=== PATIENT | female | born 1980 | race African-American/Black ===

== ENCOUNTER 2016-11-14 12:46 | Inpatient (IN) ==
[2016-11-14] MEDS ORDERED: *HR* LORazepam 2 MG/ML VIAL IVP ONE (12:48)
--- NOTE | 2016-11-14 12:54 | Emergency Department Note ---
Disposition Clinical Impression: Epileptic seizure Qualifiers: Epilepsy type: unspecified Intractability: not intractable Status epilepticus: without status epilepticus Qualified Code(s): G40.909 - Epilepsy, unspecified, not intractable, without status epilepticus Disposition: Admitted As Inpatient Condition: Fair Referrals: NO,PCP [Primary Care Provider] - Forms: ED Satisfaction Letter Time of Disposition: 15:46 Seizure HPI - General Chief Complaint: ED Seizure Stated Complaint: Seizure like activity Time Seen by Provider: 11/14/16 12:47 Source: patient, EMS, police Mode of arrival: EMS Limitations: no limitations Nursing Notes Reviewed: Yes Vital Signs Reviewed: Yes - History of Present Illness HPI Narrative: 36-year-old [facility] with [facility] withdrawal. Patient had 2 witnessed seizures at the [facility] had 1 by squad. Patient has been on Xanax for an extended period of time. She is been in [facility] for 3 days. 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 Description of Episode: tonic-clonic movement -: minutes(s) Witnessed: yes - by bystander, yes - by EMS Associated trauma secondary to event: No Seizure History: none Place: other ([facility]) Possible Precipitating Event: medication-change or access to Treatments prior to arrival: none - Related Data Previous Rx's Medication Instructions Recorded Sulfamethoxazole/Trimeth DS 1 each PO BID #6 tablet 11/11/16 [Bactrim DS] Allergies Allergy/AdvReac Type Severity Reaction Status Date / Time tramadol [From Ultram] Allergy Headache Verified 04/19/16 12:16 morphine AdvReac Hives Verified 04/19/16 12:16 All systems ED: reviewed and negative except as stated. Constitutional: Denies: fever, chills, weakness, weight change Eyes: Denies: eye pain, eye discharge, vision change ENT ED: Denies: ear pain, throat pain, dental pain, hearing loss, epistaxis, congestion, dysphagia Cardiovascular: Denies: chest pain, palpitations, dyspnea on exertion, edema, syncope Respiratory: Denies: cough, dyspnea, wheezes, hemoptysis, stridor Gastrointestinal: Denies: abdominal pain, nausea, vomiting, diarrhea, constipation, hematemesis, melena, hematochezia Genitourinary: Denies: dysuria, frequency, hematuria, discharge Musculoskeletal: Denies: back pain, neck pain, arthralgia, myalgia Integumentary: Denies: rash, abrasion, lesions Neurological: Reports: other (Seizure). Denies: headache, weakness, numbness, paresthesias, confusion, abnormal gait, vertigo Psychiatric: Denies: anxiety, depression, suicidal thoughts, homicidal thoughts , auditory hallucinations, visual hallucinations Endocrine: Denies: fatigue Hematological/Lymphatic: Denies: easy bleeding, easy bruising Allergic/Immunologic: Denies: facial swelling, urticaria Past Medical History - Past Medical History Medical history: Reports: asthma, diabetes, hepatitis, seizures Surgical history: Reports: cholecystectomy, hysterectomy Psychiatric history: Reports: other - Social History Smoking Status: Current every day smoker Smokeless Tobacco Status: No Alcohol use: Reports: occasionally Drug use: Reports: cocaine, opiates, IVDU Physical Exam - General Limitations: no limitations General appearance: alert, in no apparent distress - Head Head exam: atraumatic, normocephalic, normal inspection - Eye Eye exam: Present: normal appearance, PERRL, EOMI - ENT ENT exam: normal exam, normal oropharynx, mucous membranes moist - Neck Neck exam: Present: normal inspection, full ROM, trachea midline - Chest Chest inspection: Present: normal inspection, symmetric chest wall rise - Respiratory Respiratory exam: Present: normal lung sounds bilaterally - Cardiovascular Cardiovascular exam: Present: regular rate, normal rhythm, normal heart sounds - Abdominal Exam Abdominal exam: Present: soft, Non-Tender. Absent: tenderness, distention, guarding, rebound, rigidity - Extremities Exam Extremities exam: Present: normal inspection, full ROM. Absent: tenderness, pedal edema - Expanded Lower Extremity Exam Neurovascular/Tendon exam: Absent: motor deficit, sensory deficit, tendon deficit Gait: observed and normal - Back Exam Back exam: Present: normal inspection, full ROM. Absent: tenderness - Neurological Exam Neurological exam: Present: alert, oriented X3 - Psychiatric Psychiatric exam: Present: normal affect, normal mood - Skin Skin exam: Present: warm, dry, intact, normal color Course - Reevaluation(s) Reevaluation #1: 36-year-old with seizures at the [facility] patient is on benzos chronically and has had them for 3 days appears that she's suffered from benzo withdrawal seizures. Time: 15:45 - Consultations Consultation #1: Discussed with Claire walters. Time: 15:44 Vital Signs Temperature 99.1 F 06/18/17 12:47 Pulse Rate 56 11/14/16 12:47 Respiratory Rate 18 11/14/16 12:47 Blood Pressure 132/96 11/14/16 12:47 O2 Sat by Pulse Oximetry 100 11/14/16 12:47 Temperature 99.1 F 11/14/16 12:47 Pulse Rate 64 11/14/16 15:20 Respiratory Rate 18 11/14/16 15:20 Blood Pressure 127/80 11/14/16 15:20 O2 Sat by Pulse Oximetry 97 11/14/16 13:50 Oxygen Delivery Oxygen Delivery Room Air Seizure - Lab Data Result diagrams: 11/14/16 14:27 11/14/16 14:27 Lab Results 11/14/16 11/14/16 11/14/16 Range/Units 14:27 14:27 14:27 WBC 16.1 H D (4.3-11.1) K/mcL RBC 5.04 H (3.82-4.97) M/mcL Hgb 15.1 D (11.5-15.4) g/dL Hct 44.9 (35.3-44.9) % MCV 89.1 (83.0-100.0) fL MCH 30.0 (28.0-33.3) pg MCHC 33.6 (31.6-35.5) g/dL RDW 12.1 (11.5-14.5) % Plt Count 340 (140-400) K/mcL MPV 9.1 L (9.4-12.4) fL Immature Gran % 0.6 (0-4) % Seg Neutrophils % 78.6 % Lymphocytes % 14.8 % Monocytes % 5.8 % Eosinophils % 0.0 % Basophils % 0.2 % Neutrophils # 12.7 H (1.6-8.9) K/mcL Lymphocytes # 2.4 (0.6-4.6) K/mcL Monocytes # 0.9 (0.0-1.3) K/mcL Eosinophils # 0.0 (0.0-0.6) K/mcL Basophils # 0.0 (0.0-0.2) K/mcL Sodium 140 (136-145) mEq/L Potassium 3.8 (3.5-4.5) mEq/L Chloride 102 (98-109) mEq/L Carbon Dioxide 24 (19-29) mEq/L BUN 24 H D (7-20) mg/dL Creatinine 0.86 (0.57-1.11) mg/dL Est GFR ( Amer) > 60 (> 60) Est GFR (Non-Af Amer) > 60 (> 60) BUN/Creatinine Ratio 28 H (6-26) Glucose 216 H (70-99) mg/dL Calculated Osmolality 301 H (280-300) Calcium 9.9 (8.6-10.8) mg/dL Phosphorus 3.6 (2.3-4.7) mg/dL Magnesium 2.4 (1.6-2.6) mg/dL Serum , Qual Negative (Negative)
[2016-11-14] MEDS ORDERED: *HR* LORazepam 2 MG/ML VIAL IM ONE (13:20)
[2016-11-14] MEDS ORDERED: Haloperidol Lactate 5 MG/ML VIAL IM ONE (13:27)
[2016-11-14 14:33] LABS: Hematocrit 44.9 % (35.3-44.9); Immature Granulocytes % 0.6 % (0-4); Lymphocytes % 14.8 %; Mean Corpuscular HGB Conc 33.6 g/dL (31.6-35.5); Mean Corpuscular Volume 89.1 fL (83.0-100.0); Mean Platelet Volume 9.1 fL (9.4-12.4); Monocytes % 5.8 %; Platelet Count 340 K/mcL (140-400); Red Blood Count 5.04 M/mcL (3.82-4.97); Red Cell Distribution Width 12.1 % (11.5-14.5); Segmented Neutrophils % 78.6 %
[2016-11-14 14:34] LABS: Basophils % 0.2 %; Lymphocytes # 2.4 K/mcL (0.6-4.6); Monocytes # 0.9 K/mcL (0.0-1.3); Neutrophils # 12.7 K/mcL (1.6-8.9)
[2016-11-14 14:35] LABS: Hemoglobin 15.1 g/dL (11.5-15.4)
[2016-11-14 14:48] LABS: BUN/Creatinine Ratio 28 (6-26); Calcium 9.9 mg/dL (8.6-10.8); Carbon Dioxide 24 mEq/L (19-29); Chloride 102 mEq/L (98-109); Glucose 216 mg/dL (70-99); Magnesium 2.4 mg/dL (1.6-2.6); Osmolality,Calculated 301 (280-300); Phosphorous 3.6 mg/dL (2.3-4.7); Potassium 3.8 mEq/L (3.5-4.5); Sodium 140 mEq/L (136-145); eGFR For African Americans > 60 (> 60); eGFR For Non-African Americans > 60 (> 60)
[2016-11-14 14:52] LABS: Blood Urea Nitrogen 24 mg/dL (7-20)
[2016-11-14] MEDS ORDERED: *HR* LORazepam 2 MG/ML VIAL IVP PRN (18:01)
[2016-11-14] MEDS ORDERED: *HR* Dextrose 50 % in Water (Syg) 50 ML SYRINGE IVP PRN (18:02)
[2016-11-14] MEDS ORDERED: D5% in Water 1,000 ML IVC PRN (18:02)
[2016-11-14] MEDS ORDERED: Dextrose Gel 15 GM PO PRN ×2 (18:02)
[2016-11-14] MEDS ORDERED: Naloxone 0.4 MG/ML INJ IVP PRN (18:13)
[2016-11-14 18:24] LABS: Hemoglobin A1C 6.3 %
--- NOTE | 2016-11-14 18:51 | Internal Med History&Physical ---
Date of Encounter: 11/14/16 Time of Encounter: 18:46 Assessment and Plan (1) Epileptic seizure Current visit: Yes Status: Acute Patient with witnessed seizure today, and post -ictal hallucinations. She was given ativan and haldol. On reviewing records, patient has had multiple seizures in the past, but she also abuses benzos and hasn't had any in a few days. Seizure precautions Keppra 500mg IVPB, transition to PO once alert. Ativan PRN for seizure activity. Qualifiers: Epilepsy type: unspecified Intractability: not intractable Status epilepticus: without status epilepticus Qualified Code(s): G40.909 - Epilepsy , unspecified, not intractable, without status epilepticus (2) Diabetes Current visit: Yes Status: Chronic check A1c check blood sugars Q6hr sliding scale correction dose hypoglycemic protocol. Qualifiers: Diabetes mellitus type: type 2 Diabetes mellitus complication status: with unspecified complications Diabetes mellitus halfway insulin use: with terminal operations manager use Qualified Code(s): E11.8 - Type 2 diabetes mellitus with unspecified complications; Z79.4 - [facility] (current) use of insulin (3) Poly-drug misuser Current visit: No Status: Acute Patient uses heroin, benzos. Patient had seizure today likely related to benzo withdrawal, though it appears she has a history of seizure disorder. [facility] consulted. (4) Hallucinations Current visit: Yes Status: Acute Per ER report, patient had post-ictal hallucinations and became very agitated. She was given Haldol and settled down. (5) DVT prophylaxis Current visit: No Status: Acute anti-embolic stockings lovenox 40mg SQ daily Internal Medicine - H&P: HPI Chief complaint: seizure Admitted From: Emergency Dept Plans for Post Hospital Care: Transfer Other History of present illness: Ms. Amin is a 36 year old female who a history of diabetes, schizophrenia, bipolar disorder, hepatitis C, and seizure disorder who was sent to the emergency room from intermediate for witnessed seizure activity. Patient reportedly has seizure disorder, does not take medications. In addition to that patient uses benzos recreationally, and has not had any 3 days, so seizure may be benzodiazepine withdrawal. Patient reportedly became agitated and started having hallucinations in the ER post-ictally, and was given Haldol Unable to get review of systems from patient as she is somnolent after Haldol administration. Evaluation in the emergency department revealed elevated white blood cell count of 16.1, likely reactive after seizure, elevated blood sugar of 216. test was negative, head CT showed no acute intracranial abnormality. On exam, patient somnolent arouses to stimulation, but positive sleep quickly. Heart has regular rate and rhythm. Lungs are clear to auscultation, no peripheral edema, peripheral pulses intact. Past Med Surg Social Fam HX - Past Medical History Source: old records reviewed Medical history: asthma, diabetes, hepatitis, seizures Psychiatric history: other - Past Surgical History Surgical History: cholecystectomy, hysterectomy - Social History Smoking Status: Current every day smoker Packs per day: 1 Smokeless Tobacco Status: No Alcohol use: occasionally Drug use: cocaine, opiates, IVDU - Family History Mother Hx Family Cancer: Yes Internal Medicine - H&P: Meds Sulfamethoxazole/Trimeth DS [Bactrim DS] 1 each PO BID #6 tablet 11/11/16 [Rx] Insulin Glargine,Hum.rec.anlog [Lantus Solostar] 11/14/16 [History] Allergies tramadol [From Ultram] Allergy (Verified 04/19/16 12:16) Headache morphine Adverse Reaction (Verified 04/19/16 12:16) Hives ROS unobtainable: due to mental status All Systems PM: A 10-system review of systems was performed and is negative for pertinent findings except as documented above in the HPI. - Constitutional Vitals: Temp Pulse Resp BP Pulse Ox 97.6 F 59 16 109/65 98 11/14/16 16:42 11/14/16 16:42 11/14/16 16:42 11/14/16 16:42 11/14/16 16:42 Exam: somnolent, arouses to stimulation but quickly falls asleep. She nod "yes" to every question. - Head Head exam: Present: atraumatic, normocephalic - Eye Eye exam: Present: PERRL, conjuntiva pink, sclera anicteric Pupils: Present: PERRL - Neck Neck exam general surgery: Present: supple, trachea midline. Absent: lymphadenopathy - Respiratory Respiratory exam: Present: CTAB. Absent: accessory muscle use, rales, rhonchi, wheezes - Cardiovascular Cardiovascular exam: Present: RRR, +S1, +S2. Absent: diastolic murmur, gallop, rubs, systolic murmur - GI/Abdominal GI/Abdominal exam: Present: normal bowel sounds, soft, no peritoneal signs. Absent: distended, tenderness - Extremities Exam Extremities exam: Present: warm, radial pulses palpable and symetrical. Absent : calf tenderness, cyanotic, pedal edema - Neurological Exam Neurological exam: Absent: facial droop - Skin Skin exam: Present: dry, intact Internal Med - H&P Results - Labs CBC & Chem 7: 11/14/16 14:27 11/14/16 14:27 Labs: All Lab Results (24 Hours) 11/14/16 11/14/16 11/14/16 Range/Units 14:27 14:27 14:27 WBC 16.1 H D (4.3-11.1) K/mcL RBC 5.04 H (3.82-4.97) M/mcL Hgb 15.1 D (11.5-15.4) g/dL Hct 44.9 (35.3-44.9) % MCV 89.1 (83.0-100.0) fL MCH 30.0 (28.0-33.3) pg MCHC 33.6 (31.6-35.5) g/dL RDW 12.1 (11.5-14.5) % Plt Count 340 (140-400) K/mcL MPV 9.1 L (9.4-12.4) fL Immature Gran % 0.6 (0-4) % Seg Neutrophils % 78.6 % Lymphocytes % 14.8 % Monocytes % 5.8 % Eosinophils % 0.0 % Basophils % 0.2 % Neutrophils # 12.7 H (1.6-8.9) K/mcL Lymphocytes # 2.4 (0.6-4.6) K/mcL Monocytes # 0.9 (0.0-1.3) K/mcL Eosinophils # 0.0 (0.0-0.6) K/mcL Basophils # 0.0 (0.0-0.2) K/mcL Sodium 140 (136-145) mEq/L Potassium 3.8 (3.5-4.5) mEq/L Chloride 102 (98-109) mEq/L Carbon Dioxide 24 (19-29) mEq/L BUN 24 H D (7-20) mg/dL Creatinine 0.86 (0.57-1.11) mg/dL Est GFR ( Amer) > 60 (> 60) Est GFR (Non-Af Amer) > 60 (> 60) BUN/Creatinine Ratio 28 H (6-26) Glucose 216 H (70-99) mg/dL Est Mean Plasma Glucose mg/dl Hemoglobin A1c ( - 5.6) % Calculated Osmolality 301 H (280-300) Calcium 9.9 (8.6-10.8) mg/dL Phosphorus 3.6 (2.3-4.7) mg/dL Magnesium 2.4 (1.6-2.6) mg/dL Serum , Qual Negative (Negative) 11/14/16 Range/Units 14:27 WBC (4.3-11.1) K/mcL RBC (3.82-4.97) M/mcL Hgb (11.5-15.4) g/dL Hct (35.3-44.9) % MCV (83.0-100.0) fL MCH (28.0-33.3) pg MCHC (31.6-35.5) g/dL RDW (11.5-14.5) % Plt Count (140-400) K/mcL MPV (9.4-12.4) fL Immature Gran % (0-4) % Seg Neutrophils % % Lymphocytes % % Monocytes % % Eosinophils % % Basophils % % Neutrophils # (1.6-8.9) K/mcL Lymphocytes # (0.6-4.6) K/mcL Monocytes # (0.0-1.3) K/mcL Eosinophils # (0.0-0.6) K/mcL Basophils # (0.0-0.2) K/mcL Sodium (136-145) mEq/L Potassium (3.5-4.5) mEq/L Chloride (98-109) mEq/L Carbon Dioxide (19-29) mEq/L BUN (7-20) mg/dL Creatinine (0.57-1.11) mg/dL Est GFR ( Amer) (> 60) Est GFR (Non-Af Amer) (> 60) BUN/Creatinine Ratio (6-26) Glucose (70-99) mg/dL Est Mean Plasma Glucose 134 mg/dl Hemoglobin A1c 6.3 H ( - 5.6) % Calculated Osmolality (280-300) Calcium (8.6-10.8) mg/dL Phosphorus (2.3-4.7) mg/dL Magnesium (1.6-2.6) mg/dL Serum , Qual (Negative) - Diagnostic Studies Chest x-ray Additional comments: CT scan - head Additional comments: Head CT 11/14/16 12:48 IMPRESSION: No acute intracranial abnormality. D/ / Yuliana Fu Cha, MD / Yuliana Fu Cha, MD Interpreting Provider: Yuliana Fu Cha, MD
[2016-11-14] MEDS ORDERED: Insulin LISPRO 300 UNITS/3 ML VIAL SQ SCH (21:00)
--- NOTE | 2016-11-14 23:52 | Event Note ---
Date of Encounter: 11/14/16 Time of Encounter: 23:50 Patient seen and examined with nurse practitioner. Patient presents with benzodiazepine withdrawal seizures. She has been getting 3 bars of Xanax every day from the street. She went to care home a week ago and has not been taking any Xanax. She had two grand mal seizures that were witnessed in care home. She is alert oriented times 3 during my interview. No traumatic injuries. EEG will be performed in the morning. Patient on multiple episodes of seizures before and was supposed to be on seizures medicines. Will continue Keppra. Ativan only as needed for seizures. Telemetry monitoring and seizure precautions. Patient is not suicidal. She has a leukocytosis which is likely reactive. However were check urine analysis and chest x-ray to rule out any infectious etiology.
[2016-11-15] MEDS: 0.9 % Sodium Chloride 1,000 ML IVC SCH ×2 (00:07→10:05)
[2016-11-15] MEDS: Insulin LISPRO 300 UNITS/3 ML VIAL SQ SCH ×4 (01:00→18:37)
[2016-11-15 04:15] LABS: Basophils # 0.1 K/mcL (0.0-0.2); Basophils % 0.3 %; Eosinophils % 0.1 %; Hematocrit 42.5 % (35.3-44.9); Immature Granulocytes % 0.5 % (0-4); Immature Platelets 1.6 % (1.1-6.1); Lymphocytes # 3.6 K/mcL (0.6-4.6); Lymphocytes % 22.7 %; Mean Corpuscular HGB Conc 32.9 g/dL (31.6-35.5); Mean Platelet Volume 9.1 fL (9.4-12.4); Monocytes # 1.1 K/mcL (0.0-1.3); Monocytes % 6.9 %; Neutrophils # 10.9 K/mcL (1.6-8.9); Platelet Count 347 K/mcL (140-400); Red Blood Count 4.67 M/mcL (3.82-4.97); Red Cell Distribution Width 12.1 % (11.5-14.5); Segmented Neutrophils % 69.5 %
[2016-11-15 04:29] LABS: BUN/Creatinine Ratio 21 (6-26); Blood Urea Nitrogen 20 mg/dL (7-20); Calcium 9.5 mg/dL (8.6-10.8); Carbon Dioxide 29 mEq/L (19-29); Chloride 104 mEq/L (98-109); Glucose 143 mg/dL (70-99); Osmolality,Calculated 297 (280-300); Potassium 3.6 mEq/L (3.5-4.5); Sodium 141 mEq/L (136-145); eGFR For African Americans > 60 (> 60); eGFR For Non-African Americans > 60 (> 60)
[2016-11-15] MEDS ORDERED: Insulin LISPRO 300 UNITS/3 ML VIAL SQ SCH (07:30)
[2016-11-15 08:11] LABS: Bilirubin,Urine Negative (Negative); Blood,Urine Trace (Negative); Clarity,Urine Cloudy (Clear); Color,Urine Dark Yellow (Yellow); Glucose,Urine (UA) Normal (Normal); Ketones,Urine Trace mg/dL (Negative); Leukocyte Esterase,Urine Moderate (Negative); Nitrite,Urine Negative (Negative); Protein,Urine Trace mg/dL (Neg-Trace); Urobilinogen,Urine Normal (Normal)
[2016-11-15 08:12] LABS: Bacteria,Urine Many per hpf (None-Few); Hyaline Casts,Urine Moderate per lpf (None-Few); Squamous Epithelial Cell,Urine Many per lpf (None-Few); WBC,Urine 30-50 per hpf (0-3)
[2016-11-15 08:43] LABS: RBC,Urine 0-3 per hpf (0-3)
[2016-11-15 08:47] LABS: Amphetamine Screen,Urine Negative ng/mL (Cutoff=1000); Barbiturate Screen,Urine Negative ng/mL (Cutoff=200); Benzodiazepines Screen,Urine Negative ng/mL (Cutoff=200); Cannabinoid Screen,Urine Negative ng/mL (Cutoff = 50); Cocaine Screen,Urine Positive ng/mL (Cutoff= 300); Opiate Screen,Urine Negative ng/mL (Cutoff=300); Phencyclidine Screen,Urine Negative ng/mL (Cutoff=25)
[2016-11-15] MEDS ORDERED: diazePAM 2 MG TABLET PO SCH (09:45)
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
--- NOTE | 2016-11-15 13:42 | Neurology - Consult Note ---
<Raffy Marquez - Last Filed: 11/15/16 16:13> Date of Encounter: 11/15/16 Time of Encounter: 09:10 Assessment and Plan (1) Seizures, generalized convulsive Current Visit: Yes Status: Acute Patient admits to previous episodes of convulsive seizures secondary to benzodiazepine withdrawal. Patient states she is being buying unprescribed Ativan and using it. Patient last night intake was prior to being picked up by police several days ago but unable to give clear count on actual length of time. Plan: Check CPK. Patient has elevation in white count 16.7 currently 15.7. Elevation may be stress related to seizure activity. However, given patient's history, recommend close monitoring for signs of infectious etiology. CPK resulted: 383 Antibiotics started to cover for possible underlying infection by hospitalist Recommendations: Continue treating medically, focal neurological deficits identified. Patient has enough reasons of recent drug use and withdrawal history leading his seizures. CT head was negative. After reassessment at approximately 1500 hrs. Patient's alertness seems to be improving. Recommend further monitoring until drugs clear from patient system. No further recommendations from neurology at this time signing off. (2) Heroin abuse Current Visit: No Status: Chronic Patient admits to heroin abuse, but urine tox shows positivity for cocaine. An negative for opioid use (3) Hallucinations Current Visit: Yes Status: Acute Patient reports hallucinations of mother. Patient states her decreased visual acuity secondary to keep her eyes closed for extended periods of time because of the hallucinations Plan: Visual acuity testing and MRI of head and brain to check for any underlying pathology (4) Cocaine abuse Current Visit: Yes Status: Chronic Patient's urine tox screen positive for cocaine use and negative for opiates. Plan: Medical management for patient's withdrawal symptoms and monitor for dysrhythmias. History of Present Illness Chief complaint: Seizures HPI: Ms. Amin is a 36 year old female with past medical history of heroin and IV drug use, and previous episodes of seizure activity secondary to benzodiazepine withdrawal. Patient complains of recent seizures, headache, abdominal pain, nausea vomiting and generalized weakness. Patient is unsure of time of onset. Patient's unsure about last known ingestion or use of Ativan which she states she "buys off the street". Patient states last time was before she was picked up by the police. Patient's currently cuffed with an officer at bedside. Past Med Surg Social Fam HX - Past Medical History Attestation: Yes The following information was validated with the patient. Source: patient Medical history: asthma, diabetes, hepatitis, seizures Psychiatric history: other - Past Surgical History Surgical History: cholecystectomy, hysterectomy - Social History Smoking Status: Current every day smoker Packs per day: 1 Smokeless Tobacco Status: No Alcohol use: occasionally Drug use: cocaine, opiates, IVDU - Family History Mother Hx Family Cancer: Yes Medications and Allergies Sulfamethoxazole/Trimeth DS [Bactrim DS] 1 each PO BID #6 tablet 11/11/16 [Rx] Insulin Glargine,Hum.rec.anlog [Lantus Solostar] 11/14/16 [History] Allergies tramadol [From [facility]] Allergy (Verified 04/19/16 12:16) Headache morphine Adverse Reaction (Verified 04/19/16 12:16) Hives All Systems: A 10-system review of systems was performed and is negative for pertinent findings except as documented above in the HPI. Review of Systems: Review of systems: Patient denies neck pain, back pain, chest pain or shortness of breath. Patient admits to vision change: loss of visual acuity in both eyes and states "I see my mother all the time", nausea, vomiting, generalized weakness. Physical Examination - Vital Signs Vital Signs: Initial Vital Signs Temp Pulse Resp BP Pulse Ox 99.1 F 56 18 132/96 100 11/14/16 12:47 11/14/16 12:47 11/14/16 12:47 11/14/16 12:47 11/14/16 12:47 - Exam Exam: -General Appearance: Patient is a 56-year-old female who is alert and oriented 3 lying in bed with medical costs around ankles, patient is in no acute distress and has no verbal aphasia dysarthria no facial drooping. Patient does appear uncomfortable -Neurological exam: Cranial nerves III-12 intact, no focal deficits observed, strength and lacking in lower extremities more than in upper and lower extremities: 2/5 bilateral lower extremities and 4/5 bilateral upper extremities , patient appears heavily fatigued and unable to participate in rest of exam. Negative Babinski sign - Head Head exam: atraumatic, normocephalic, normal inspection - Eye Eye exam: Present: normal appearance, pupils equal round reactive to light. Patient has difficulty seeing and attributes it to visual hallucinations of mother, patient fails to accurately identify how many fingers being held in front of either eye. Peripheral visual oliveira intact bilaterally - ENT ENT exam: normal exam, normal oropharynx, mucous membranes moist - Neck Neck exam: Present: normal inspection, full ROM, trachea midline, negative JVD - Chest Chest inspection: Present: Patient has bilateral equal rise and fall of chest wall. Non-tender to palpation. - Respiratory Respiratory exam: Clear to auscultation bilaterally without wheezes rales or rhonchi Cardiovascular Cardiovascular exam: Present: regular rate, normal rhythm, normal heart sounds, without murmurs rubs or gallops. - Abdominal Exam Abdominal exam: Present: soft, nondistended, generalized Tenderness palpation in all quadrants patient states tenderness but does not grimace or guard against palpation. Bowel sounds normoactive throughout all 4 quadrants. Negative for hyper or hyperresonance. - Extremities Exam Extremities exam: Present: normal inspection, full ROM - Back Exam Back exam: Present: normal inspection, full ROM. Absent: tenderness, CVA tenderness (R), CVA tenderness (L), no signs of trauma, bruising, swelling, erythema. No midline tenderness - Psychiatric Psychiatric exam: Present: normal affect, normal mood - Skin Skin exam: Present: warm, dry, intact, normal color - Constitutional General appearance: uncomfortable - Neurologic Sensorimotor examination: other (Patient reports decreased sensation to the left side of her face, right forearm, the right lower extremity. Patient states she can still feel but sensation is less. Patient having a difficult time participating in exam secondary to pain hallucinations and weakness ) Detailed motor examination: other (Patient's global weakness lower extremity worse than upper extremity and equal bilaterally. Patient is able to sit up in the bed under her own strength. When asked to lift her legs off the bed patient is unable to wound strength to lift either lower extremity) Reflex and gait examination: other Reflexes: Patella: 2+ Mental Status Examination: awake, alert, oriented to person, oriented to place, oriented to time, follows commands appropriately, answers questions appropriately Results - Laboratory Findings CBC and BMP: 11/15/16 04:05 11/15/16 04:05 Abnormal lab findings: Abnormal lab results WBC 15.7 K/mcL (4.3-11.1) H 11/15/16 04:05 MPV 9.1 fL (9.4-12.4) L 11/15/16 04:05 Neutrophils # 10.9 K/mcL (1.6-8.9) H 11/15/16 04:05 Glucose 143 mg/dL (70-99) H 11/15/16 04:05 POC Glucose 198 (58-89) H 11/15/16 06:11 Hemoglobin A1c 6.3 % (-5.6) H 11/14/16 14:27 Urine Clarity Cloudy (Clear) A 11/15/16 07:55 Ur Specific [place] 1.030 (1.010-1.025) H 11/15/16 07:55 Urine Ketones Trace mg/dL (Negative) H 11/15/16 07:55 Urine Blood Trace (Negative) H 11/15/16 07:55 Ur Leukocyte Esterase Moderate (Negative) H 11/15/16 07:55 Urine Microscopic WBC 30-50 per hpf (0-3) H 11/15/16 07:55 Ur Squamous Epith Cells Many per lpf (None-Few) H 11/15/16 07:55 Urine Bacteria Many per hpf (None-Few) H 11/15/16 07:55 Hyaline Casts Moderate per lpf (None-Few) H 11/15/16 07:55 Urine Cocaine Screen Positive ng/mL (Cutoff= 300) H 11/15/16 07:55 - Diagnostic Findings EKG: report reviewed Chest x-ray: report reviewed, image reviewed Consult Discharge Plan - Plan Instructions: Diabetes Mellitus Type 2 in Adults (DC) Referrals: NO,PCP [Primary Care Provider] - <Johan Friend - Last Filed: 11/15/16 16:36> Date of Encounter: 11/15/16 Time of Encounter: 16:30 Assessment and Plan (1) Seizures, generalized convulsive Current Visit: Yes Status: Acute I agree with Dr. Marquez's assessment as stated above. I believe that this patient experienced a symptomatic seizure based partly on benzodiazepine withdrawal, in conjunction with cocaine use. A urine tox screen was positive for cocaine. She is not however epileptic. This was a symptomatic seizure. I do not feel that antiepileptic medications are indicated in this case. Her EEG study was normal. However sinus bradycardia was present. I will reevaluate her at your request. History of Present Illness HPI: Ms. Amin is a 36 year old female who was seen and evaluated independently. The chart was reviewed. I agree with Dr. Marquez's assessment as stated above. All Systems: A 10-system review of systems was performed and is negative for pertinent findings except as documented above in the HPI. Physical Examination - Vital Signs Vital Signs: Initial Vital Signs Temp Pulse Resp BP Pulse Ox 99.1 F 56 18 132/96 100 11/14/16 12:47 11/14/16 12:47 11/14/16 12:47 11/14/16 12:47 11/14/16 12:47 - Exam Exam: The patient's neurologic exam today was very compromised by her somnolence. However she was arousable, more arousable than one occurred she was earlier today. She does follow simple commands, however she is not able to give a lucid history. Cranial nerves II through XII are intact. I find no focal or lateralized deficits on her exam. Deep tendon reflexes are 1 symmetrically at the biceps, triceps, brachial radialis, patellar. Achilles reflexes are absent. No Babinski sign, no clonus is present. No involuntary movements identified no atrophy is present. Results - Laboratory Findings CBC and BMP: 11/15/16 04:05 11/15/16 04:05 Abnormal lab findings: Abnormal lab results WBC 15.7 K/mcL (4.3-11.1) H 11/15/16 04:05 MPV 9.1 fL (9.4-12.4) L 11/15/16 04:05 Neutrophils # 10.9 K/mcL (1.6-8.9) H 11/15/16 04:05 Glucose 143 mg/dL (70-99) H 11/15/16 04:05 POC Glucose 193 (58-89) H 11/15/16 16:13 Hemoglobin A1c 6.3 % (-5.6) H 11/14/16 14:27 Total Bilirubin 1.5 mg/dL (0.2-1.2) H 11/15/16 14:36 AST 40 Units/L (5-34) H 11/15/16 14:36 Alkaline Phosphatase 141 Units/L (38-126) H 11/15/16 14:36 Creatine Kinase 383 Units/L (29-168) H 11/15/16 14:36 Albumin 3.4 g/dL (3.5-5.0) L 11/15/16 14:36 Globulin 3.9 g/dL (2.4-3.5) H 11/15/16 14:36 Albumin/Globulin Ratio 0.9 (1.1-2.2) L 11/15/16 14:36 Urine Clarity Cloudy (Clear) A 11/15/16 07:55 Ur Specific [place] 1.030 (1.010-1.025) H 11/15/16 07:55 Urine Ketones Trace mg/dL (Negative) H 11/15/16 07:55 Urine Blood Trace (Negative) H 11/15/16 07:55 Ur Leukocyte Esterase Moderate (Negative) H 11/15/16 07:55 Urine Microscopic WBC 30-50 per hpf (0-3) H 11/15/16 07:55 Ur Squamous Epith Cells Many per lpf (None-Few) H 11/15/16 07:55 Urine Bacteria Many per hpf (None-Few) H 11/15/16 07:55 Hyaline Casts Moderate per lpf (None-Few) H 11/15/16 07:55 Urine Cocaine Screen Positive ng/mL (Cutoff= 300) H 11/15/16 07:55
[2016-11-15] MEDS ORDERED: *HR* LORazepam 2 MG/ML VIAL IVP PRN (13:54)
[2016-11-15] MEDS ORDERED: D5 IVPB ONE ×2 (13:56→15:00)
[2016-11-15] MEDS ORDERED: CEFTRIAXONE IVPB ONE ×2 (13:56→15:00)
[2016-11-15] MEDS ORDERED: WATER IVPB ONE ×2 (13:56→15:00)
[2016-11-15] MEDS ORDERED: Azithromycin 500 MG in D5% in Water 250 ML IVPB ONE (13:56)
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
--- NOTE | 2016-11-15 14:38 | EEG/EMG/Oth Biometrics Report ---
EEG Procedure Report Date of procedure: 11/15/16 EEG Procedure: Routine EEG Procedure Note: This is a report of a 21 channel bipolar and referential montage EEG. A posterior dominant rhythm of 9 Hz moderate voltage alpha frequency is identified symmetrically in the posterior head regions. This rhythm attenuates symmetrically with eye opening. Hyperventilation is not performed in the recording. Intermittent beta frequencies are identified in the frontal leads bilaterally. Periods of drowsiness and stage II sleep are identified as referenced by dropout of the posterior dominant rhythm, and the emergence of vertex activity, K complexes, and sleep spindles. Photic stimulation is performed and does not produce a driving response. EKG rhythm strip reveals sinus bradycardia at 48 beats per minute. Impressions: This EEG recording is within normal limits. There is no evidence of epileptiform activity identified during the study. Comment: Beta frequencies are indeed recognized as a normal variant, however may also be indicative of a host of metabolic conditions, anxiety, and medication effect. Sinus bradycardia is also identified during the recording. Certainly if the bradycardia is profound it may cause loss of consciousness. Please correlate clinically.
[2016-11-15 14:57] LABS: Albumin 3.4 g/dL (3.5-5.0); Albumin/Globulin Ratio 0.9 (1.1-2.2); Bilirubin,Direct 0.5 mg/dL (0.0-0.5); Bilirubin,Total 1.5 mg/dL (0.2-1.2); Globulin 3.9 g/dL (2.4-3.5); Total Protein 7.3 g/dL (6.0-8.3)
[2016-11-15] MEDS ORDERED: WATER IM ONE (15:00)
[2016-11-15] MEDS ORDERED: D5 IM ONE (15:00)
[2016-11-15] MEDS ORDERED: CEFTRIAXONE IM ONE (15:00)
[2016-11-15] MEDS ORDERED: Ondansetron 4 MG/2 ML VIAL ONE (17:41)
--- NOTE | 2016-11-15 17:52 | Electrocardiograph Report ---
[place] [id number] Test Date: 2016-11-14 Pat Name: Arpita Amin Department: 105 Room: 3B41 Gender: F Manager Perioperative: LEONELA : 1980 Requested By: Hernandez Meyer Order Number: [id number] Reading MD: Roger Valdez MD Measurements Intervals [place] Rate: 54 P: 76 IN: 111 QRS: 79 QRSD: 94 T: 78 QT: 478 QTc: 463 Interpretive Statements SINUS BRADYCARDIA WITH SHORT IN INTERVAL BASELINE ARTIFACT COMPLICATES ACCURATE INTERPRETATION Electronically Signed On 11-15-2016 17:51:07 EDT by Roger Valdez MD
[2016-11-15] MEDS ORDERED: *HR* LORazepam 2 MG/ML VIAL IVP ONE ×2 (17:54→18:18)
[2016-11-15] MEDS ORDERED: Ondansetron 4 MG/2 ML VIAL IVP ONE (17:56)
[2016-11-15] MEDS ORDERED: Ondansetron 4 MG/2 ML VIAL IVP PRN (19:08)
[2016-11-15] MEDS ORDERED: *HR* Promethazine 25 MG/ML VIAL IVP PRN (19:08)
--- NOTE | 2016-11-15 19:11 | Event Note ---
Date of Encounter: 11/15/16 Time of Encounter: 16:30 Patient has had a total of 3 seizures today. Consistent with benzo withdrawal. We will schedule by mouth diazepam as well as IV Ativan as needed for seizures. All 3 seizures were witnessed by staff and she did not sustain any injuries during any of the seizures. She has been postictal after every seizure but she continues to answer questions appropriately. She continues to actively hallucinate as she sees and hears her mother frequently. She is not medically cleared at this time. The [facility]ANE team is at the bedside.
[2016-11-15 19:28] LABS: HIV-1&2 Antibody & p24 Ag Nonreactive (Nonreactive)
[2016-11-15 21:10] LABS: Hepatitis B Surface Antibody 9.51 mIU/mL
[2016-11-15] MEDS: diazePAM 5 MG TABLET PO SCH (22:16)
[2016-11-16] MEDS: Insulin LISPRO 300 UNITS/3 ML VIAL SQ SCH ×3 (00:02→12:15)
[2016-11-16] MEDS: *HR* LORazepam 2 MG/ML VIAL IVP PRN ×2 (00:18→00:28)
[2016-11-16] MEDS ORDERED: *HR* LORazepam 2 MG/ML VIAL IVP ONE (00:31)
[2016-11-16 01:32] LABS: Basophils % 0.3 %; Eosinophils % 0.3 %; Hematocrit 36.6 % (35.3-44.9); Immature Granulocytes % 0.3 % (0-4); Lymphocytes # 3.4 K/mcL (0.6-4.6); Lymphocytes % 29.3 %; Mean Corpuscular HGB Conc 33.3 g/dL (31.6-35.5); Mean Corpuscular Hemoglobin 30.7 pg (28.0-33.3); Mean Platelet Volume 9.6 fL (9.4-12.4); Monocytes # 0.7 K/mcL (0.0-1.3); Monocytes % 6.3 %; Neutrophils # 7.4 K/mcL (1.6-8.9); Platelet Count 257 K/mcL (140-400); Red Blood Count 3.98 M/mcL (3.82-4.97); Red Cell Distribution Width 11.9 % (11.5-14.5); Segmented Neutrophils % 63.5 %
[2016-11-16 01:36] LABS: Hemoglobin 12.2 g/dL (11.5-15.4)
[2016-11-16 01:37] LABS: BUN/Creatinine Ratio 13 (6-26); Blood Urea Nitrogen 11 mg/dL (7-20); Calcium 8.5 mg/dL (8.6-10.8); Carbon Dioxide 23 mEq/L (19-29); Chloride 107 mEq/L (98-109); Glucose 248 mg/dL (70-99); Magnesium 1.8 mg/dL (1.6-2.6); Osmolality,Calculated 294 (280-300); Potassium 3.4 mEq/L (3.5-4.5); Sodium 138 mEq/L (136-145); eGFR For African Americans > 60 (> 60); eGFR For Non-African Americans > 60 (> 60)
[2016-11-16] MEDS: 0.9 % Sodium Chloride 1,000 ML IVC SCH ×2 (03:35→15:32)
[2016-11-16] MEDS ORDERED: *HR* Enoxaparin 40 MG/0.4 ML SYRINGE SQ SCH (07:00)
[2016-11-16] MEDS ORDERED: levETIRAcetam 250 MG TABLET PO SCH (08:12)
[2016-11-16] MEDS ORDERED: diazePAM 10 MG/2 ML SYRINGE IVP PRN ×2 (08:13)
[2016-11-16] MEDS ORDERED: Haloperidol Lactate 5 MG/ML VIAL IVP PRN (08:14)
[2016-11-16] MEDS: diazePAM 5 MG TABLET PO SCH ×2 (08:20→15:07)
--- NOTE | 2016-11-16 08:21 | Internal Med Progress Note ---
Date of Encounter: 11/16/16 Time of Encounter: 08:19 - Assessment and plan (1) Benzodiazepine withdrawal with delirium Current Visit: Yes Status: Acute Assessment and plan: Caused by not taking her Xanax (obtained illegally on the streets) Continue diazepam and taper Fall, aspiration and seizure precautions (2) Diabetes Current Visit: Yes Status: Chronic Assessment and plan: Controlled with an A1c of 6.3%. She is listed as being on insulin at home however we have not confirmed this. 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 Qualified Code(s): E11.8 - Type 2 diabetes mellitus with unspecified complications; Z79.4 - longterm (current) use of insulin (3) Heroin abuse Current Visit: No Status: Chronic (4) Poly-drug misuser Current Visit: No Status: Acute (5) UTI (urinary tract infection) Current Visit: No Status: Acute Assessment and plan: Continue ceftriaxone day 2 Qualifiers: Urinary tract infection type: acute cystitis Hematuria presence: without hematuria Qualified Code(s): N30.00 - Acute cystitis without hematuria (6) Epileptic seizure Current Visit: Yes Status: Chronic Assessment and plan: Discontinue Ativan Continue diazepam as needed. Increase Keppra up to 1000 mg twice a day. Neurology and psychiatry recommendations appreciated Head CT negative. Chest x-ray negative. EEG normal. ITS Impressions Head CT 11/14/16 12:48 IMPRESSION: No acute intracranial abnormality. D/ / Yuliana Fu Cha, MD / Yuliana Fu Cha, MD Interpreting Provider: Yuliana Fu Cha, MD Chest X-Ray 11/15/16 00:01 IMPRESSION: No acute process. D/ / Peewee Valero MD / Peewee Valero MD Interpreting Provider: Peewee Valero MD Qualifiers: Epilepsy type: unspecified Intractability: not intractable Status epilepticus: without status epilepticus Qualified Code(s): G40.909 - Epilepsy , unspecified, not intractable, without status epilepticus (7) Hallucinations Current Visit: Yes Status: Acute Assessment and plan: Haldol as needed. - Subjective Interval history: The patient is very somnolent, not oriented in place or time, complains of back pain, apparently she had a few seizures earlier today and yesterday. Denies any chest pain or shortness of breath. Not able to completely review of systems due to the patient's confusion and somnolence - Constitutional Vitals: Temp Pulse Resp BP Pulse Ox 98.1 F 75 16 136/91 100 11/16/16 06:49 11/16/16 06:49 11/16/16 06:49 11/16/16 06:49 11/16/16 06:49 General appearance: Present: A&O X 1, disheveled, mild distress, answers questions appropriately. Absent: A&O X 3 - Head Head exam: Present: atraumatic, normocephalic - Eye Eye exam: Present: PERRL, conjuntiva pink, sclera anicteric Pupils: Present: PERRL - Neck Neck exam general surgery: Present: supple, trachea midline. Absent: lymphadenopathy - Respiratory Respiratory exam: Present: decreased breath sounds, CTAB. Absent: accessory muscle use, rales, rhonchi, wheezes - Cardiovascular Cardiovascular exam: Present: RRR, +S1, +S2. Absent: diastolic murmur, gallop, rubs, systolic murmur - GI/Abdominal GI/Abdominal exam: Present: normal bowel sounds, soft, no peritoneal signs. Absent: distended, tenderness - Extremities Exam Extremities exam: Present: warm, radial pulses palpable and symetrical. Absent : calf tenderness, cyanotic, pedal edema - Neurological Exam Neurological exam: Present: CN II-XII intact, no focal deficits. Absent: oriented X3, pronater drift, facial droop, speech deficit - Skin Skin exam: Present: dry, intact Internal Medicine: Result - Labs CBC & Chem 7: 11/16/16 01:15 11/16/16 01:15 Labs: Short CBC 11/16/16 Range/Units 01:15 WBC 11.6 H (4.3-11.1) K/mcL Hgb 12.2 D (11.5-15.4) g/dL Hct 36.6 (35.3-44.9) % Plt Count 257 (140-400) K/mcL Neutrophils # 7.4 (1.6-8.9) K/mcL BMP 11/16/16 01:15 Sodium 138 Potassium 3.4 L Chloride 107 Carbon Dioxide 23 BUN 11 Creatinine 0.86 Glucose 248 H Calcium 8.5 L Consult Discharge Plan - Plan Instructions: Diabetes Mellitus Type 2 in Adults (DC) Referrals: NO,PCP [Primary Care Provider] -
[2016-11-16 08:44] LABS: BUN/Creatinine Ratio 12 (6-26); Blood Urea Nitrogen 10 mg/dL (7-20); Calcium 8.5 mg/dL (8.6-10.8); Carbon Dioxide 26 mEq/L (19-29); Chloride 106 mEq/L (98-109); Glucose 170 mg/dL (70-99); Osmolality,Calculated 287 (280-300); Potassium 3.6 mEq/L (3.5-4.5); Sodium 137 mEq/L (136-145); eGFR For African Americans > 60 (> 60); eGFR For Non-African Americans > 60 (> 60)
[2016-11-16] MEDS: *HR* HYDROmorphone 2 MG/ML SYRINGE IVP PRN ×2 (10:44→15:07)
[2016-11-16 16:18] VITALS: BP 125/87
--- NOTE | 2016-11-16 18:37 | Discharge Summary ---
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 (3) Heroin abuse Priority: Secondary Status: Chronic (4) Poly-drug misuser Priority: Secondary Status: Acute (5) UTI (urinary tract infection) Priority: Secondary Status: Acute Comments: ceftriaxone day 2 Qualifiers: Urinary tract infection type: acute cystitis Hematuria presence: without hematuria Qualified Code(s): N30.00 - Acute cystitis without hematuria (6) Epileptic seizure Priority: Secondary Status: Chronic Qualifiers: Epilepsy type: unspecified Intractability: not intractable Status epilepticus: without status epilepticus Qualified Code(s): G40.909 - Epilepsy , unspecified, not intractable, without status epilepticus (7) Hallucinations Priority: Secondary Status: Acute - Discharge Medications Home Medications: Sulfamethoxazole/Trimeth DS [Bactrim DS] 1 each PO BID #6 tablet 11/11/16 [Rx] Insulin Glargine,Hum.rec.anlog [Lantus Solostar] 11/14/16 [History] Allergies/Adverse Reactions: Allergies tramadol [From Ultram] Allergy (Verified 04/19/16 12:16) Headache morphine Adverse Reaction (Verified 04/19/16 12:16) Hives Date of admission: 11/15/16 17:41 Primary care physician: PCP NO - Patient Status Disposition: Left Against Medical Advice Condition: Fair - Discharge Instructions Instructions: Diabetes Mellitus Type 2 in Adults (DC) Follow Up With: NO,PCP [Primary Care Provider] - Hospital course: Ms. Amin is a 36 year old female with a past medical history of diabetes not insulin-dependent, schizophrenia, bipolar disorder, hepatitis C, and seizure disorder who was [facility] from [facility] for witnessed seizure activity. Patient reportedly has seizure disorder, does not take prescribed medications. In addition to that patient uses benzos recreationally, and did not have any 3 days, so seizure may have occurred due to benzodiazepine withdrawal. Patient reportedly became agitated and started having hallucinations in the ER post-ictally, and was given Haldol white blood cell count of 16.1, likely reactive after seizure, elevated blood sugar of 216. Was started on Rocephin for UTI. test was negative, head CT showed no acute intracranial abnormality. Was evaluated by neurology and psychiatry. EEG did not show any abnormal activity. Patient was started on Keppra and received diazepam 5 mg 3 times a day plus when necessary doses. When I saw the patient in the morning she was oriented only to person while the police specialist was in the room. In the afternoon, after the police specialist left she miraculously improve her mental status, did not have any actual true seizures afterwards. She had a pseudoseizure and woke up after just 2 minutes of having it according to the nursing staff. The patient decided to leave AGAINST MEDICAL ADVICE and did not want to wait for me to see her again. Nursing staff mentioned the risks of using benzodiazepines and especially not having a proper taper. - Time Spent with Patient Total time spent providing and/or coordinating discharge services: Greater than 30 minutes (36 min) - Constitutional Vitals: Temp Pulse Resp BP Pulse Ox 99.3 F 102 17 125/87 93 11/16/16 11:43 11/16/16 16:10 11/16/16 16:10 11/16/16 16:10 11/16/16 16:10 General appearance: Present: A&O X 1, disheveled, mild distress, answers questions appropriately. Absent: A&O X 3 - Head Head exam: Present: atraumatic, normocephalic - Eye Eye exam: Present: PERRL, conjuntiva pink, sclera anicteric Pupils: Present: PERRL - Neck Neck exam general surgery: Present: supple, trachea midline. Absent: lymphadenopathy - Respiratory Respiratory exam: Present: CTAB. Absent: accessory muscle use, rales, rhonchi, wheezes - Cardiovascular Cardiovascular exam: Present: RRR, +S1, +S2. Absent: diastolic murmur, gallop, rubs, systolic murmur - GI/Abdominal GI/Abdominal exam: Present: normal bowel sounds, soft, no peritoneal signs. Absent: distended, tenderness - Extremities Exam Extremities exam: Present: warm, radial pulses palpable and symetrical. Absent : calf tenderness, cyanotic, pedal edema - Neurological Exam Neurological exam: Present: CN II-XII intact, oriented X3, no focal deficits. Absent: pronater drift, facial droop, speech deficit - Skin Skin exam: Present: dry, intact
== END 2016-11-16 17:22 | disposition left against medical advice (07) | DRG 770 ==
LOC: 3BNU 12:46 → EMEROO 12:46 → 3BNU 16:31
PROVIDERS: ADMIT Nurse Practitioner Family; ATTEND Registered Nurse

== ENCOUNTER 2021-12-19 12:48 | Inpatient (IN) ==
[2021-12-19] MEDS ORDERED: OLANZapine 5 MG TAB.RAPDIS PO ONE (13:14)
[2021-12-19 13:29] LABS: Bilirubin,Urine Negative (Negative); Blood,Urine Negative (Negative); Clarity,Urine Clear (Clear); Color,Urine Light-Yellow (Yellow); Glucose,Urine (UA) >=1000 mg/dL (Normal); Ketones,Urine Negative (Negative); Leukocyte Esterase,Urine Negative (Negative); Mucus,Urine Few per lpf (None-Few); Nitrite,Urine Negative (Negative); PH,Urine 6.5 pH Units (5.0-8.0); Protein,Urine Negative (Neg-Trace); RBC,Urine 0-3 per hpf (0-3); Specific Gravity,Urine > 1.030 (1.010-1.025); Squamous Epithelial Cell,Urine Few per hpf (None-Few); Urobilinogen,Urine Normal (Normal)
[2021-12-19 13:38] LABS: Amphetamine Screen,Urine Positive ng/mL (Cutoff=1000); Barbiturate Screen,Urine Negative ng/mL (Cutoff=200); Benzodiazepines Screen,Urine Negative ng/mL (Cutoff=200); Cannabinoid Screen,Urine Negative ng/mL (Cutoff = 50); Cocaine Screen,Urine Negative ng/mL (Cutoff= 300); Opiate Screen,Urine Negative ng/mL (Cutoff=300); Phencyclidine Screen,Urine Negative ng/mL (Cutoff=25)
[2021-12-19] MEDS ORDERED: OLANZapine 10 MG VIAL IM ONE (13:44)
[2021-12-19 14:06] LABS: Basophils % 0.3 %; Eosinophils # 0.1 K/mcL (0.0-0.6); Eosinophils % 1.2 %; Hematocrit 41.3 % (35.3-44.9); Hemoglobin 13.8 g/dL (11.5-15.4); Immature Granulocytes % 0.2 % (0-4); Lymphocytes # 2.8 K/mcL (0.6-4.6); Lymphocytes % 32.1 %; Mean Corpuscular HGB Conc 33.4 g/dL (31.6-35.5); Mean Corpuscular Hemoglobin 30.8 pg (28.0-33.3); Mean Corpuscular Volume 92.2 fL (83.0-100.0); Mean Platelet Volume 9.6 fL (9.4-12.4); Monocytes # 0.4 K/mcL (0.0-1.3); Monocytes % 4.5 %; Neutrophils # 5.4 K/mcL (1.6-8.9); Platelet Count 257 K/mcL (140-400); Red Blood Count 4.48 M/mcL (3.82-4.97); Red Cell Distribution Width 12.2 % (11.5-14.5); Segmented Neutrophils % 61.7 %; White Blood Count 8.7 K/mcL (4.3-11.1)
[2021-12-19 14:27] LABS: Acetaminophen < 10 mcg/mL (10-20); BUN/Creatinine Ratio 10 (6-26); Blood Urea Nitrogen 8 mg/dL (6-20); Calcium 9.3 mg/dL (8.6-10.3); Carbon Dioxide 28 mEq/L (23-29); Chloride 97 mEq/L (98-107); Ethanol < 10 mg/dL (Less than 10); Glucose 388 mg/dL (70-105); Osmolality,Calculated 290 (280-300); Potassium 3.7 mEq/L (3.5-5.1); Salicylate < 2.5 mg/dL (15.0-30.0); Sodium 133 mEq/L (136-145); Troponin I < 0.03 ng/mL (< 0.04); eGFR For African Americans > 60 (> 60); eGFR For Non-African Americans > 60 (> 60)
[2021-12-19] MEDS ORDERED: Insulin LISPRO 300 UNITS/3 ML VIAL SUBQ ONE (15:07)
[2021-12-19] MEDS ORDERED: Insulin LISPRO 300 UNITS/3 ML VIAL SUBQ STA (16:42)
[2021-12-19] MEDS ORDERED: Ondansetron ODT 4 MG TAB.RAPDIS SL ONE (21:26)
[2021-12-19] MEDS ORDERED: *HR* Water for inj. (sterile) Vial 10 ML IM ONE (22:00)
[2021-12-20] MEDS ORDERED: *HR* LORazepam 2 MG/ML VIAL IM STA (09:16)
[2021-12-20] MEDS ORDERED: *HR* LORazepam 2 MG/ML VIAL IVP ONE (09:26)
[2021-12-20 10:18] LABS: Basophils % 0.3 %; Eosinophils # 0.1 K/mcL (0.0-0.6); Eosinophils % 1.3 %; Hematocrit 45.5 % (35.3-44.9); Hemoglobin 15.2 g/dL (11.5-15.4); Immature Granulocytes % 0.3 % (0-4); Lymphocytes # 1.6 K/mcL (0.6-4.6); Lymphocytes % 20.6 %; Mean Corpuscular HGB Conc 33.4 g/dL (31.6-35.5); Mean Corpuscular Hemoglobin 30.5 pg (28.0-33.3); Mean Corpuscular Volume 91.4 fL (83.0-100.0); Mean Platelet Volume 9.2 fL (9.4-12.4); Monocytes # 0.3 K/mcL (0.0-1.3); Monocytes % 3.4 %; Neutrophils # 5.6 K/mcL (1.6-8.9); Platelet Count 270 K/mcL (140-400); Red Blood Count 4.98 M/mcL (3.82-4.97); Red Cell Distribution Width 12.2 % (11.5-14.5); Segmented Neutrophils % 74.1 %; White Blood Count 7.6 K/mcL (4.3-11.1)
[2021-12-20 10:28] LABS: Alanine Aminotransferase 82 Units/L (7-52); Albumin 4.1 g/dL (3.5-5.7); Albumin/Globulin Ratio 1.1 (1.1-2.2); Alkaline Phosphatase 382 Units/L (34-104); Aspartate Amino Transferase 113 Units/L (13-39); BUN/Creatinine Ratio 9 (6-26); Bilirubin,Total 1.1 mg/dL (0.3-1.0); Blood Urea Nitrogen 8 mg/dL (6-20); Calcium 9.6 mg/dL (8.6-10.3); Carbon Dioxide 29 mEq/L (23-29); Chloride 99 mEq/L (98-107); Globulin 3.9 g/dL (2.4-3.5); Glucose 238 mg/dL (70-105); Magnesium 1.8 mg/dL (1.6-2.6); Osmolality,Calculated 288 (280-300); Potassium 3.7 mEq/L (3.5-5.1); Sodium 136 mEq/L (136-145); eGFR For African Americans > 60 (> 60); eGFR For Non-African Americans > 60 (> 60)
[2021-12-20] MEDS ORDERED: Ondansetron 4 MG/2 ML VIAL IVP PRN (10:47)
[2021-12-20] MEDS ORDERED: Naloxone 0.4 MG/ML INJ IVP PRN (10:47)
[2021-12-20] MEDS ORDERED: D5% in Water 1,000 ML IVC PRN (10:48)
[2021-12-20] MEDS ORDERED: Dextrose Gel 15 GM/37.5 ML TUBE PO PRN ×2 (10:48)
[2021-12-20] MEDS ORDERED: *HR* Dextrose 50 % in Water (Syg) 50 ML SYRINGE IVP PRN (10:48)
[2021-12-20] MEDS ORDERED: *HR* LORazepam 2 MG/ML VIAL IVP PRN (10:51)
[2021-12-20] MEDS ORDERED: Haloperidol Lactate 5 MG/ML VIAL IVP PRN (10:51)
[2021-12-20] MEDS ORDERED: cloNIDine HCL 0.1 MG TABLET PO PRN (10:53)
[2021-12-20 10:57] LABS: Creatine Kinase 185 Units/L (30-223)
[2021-12-20] MEDS: Insulin LISPRO 300 UNITS/3 ML VIAL SUBQ SCH ×2 (12:52→17:27)
[2021-12-20 13:11] LABS: Estimated Average Glucose 255 mg/dl; Hemoglobin A1C 10.5 %
[2021-12-21 07:35] LABS: Albumin 3.6 g/dL (3.5-5.7); Albumin/Globulin Ratio 1.2 (1.1-2.2); Bilirubin,Direct 0.3 mg/dL (0.0-0.2); Bilirubin,Indirect 0.5 mg/dL (0.0-1.0); Bilirubin,Total 0.8 mg/dL (0.3-1.0); Globulin 2.9 g/dL (2.4-3.5); Total Protein 6.5 g/dL (6.4-8.9)
[2021-12-21 07:39] LABS: BUN/Creatinine Ratio 19 (6-26); Blood Urea Nitrogen 14 mg/dL (6-20); Calcium 9.1 mg/dL (8.6-10.3); Carbon Dioxide 27 mEq/L (23-29); Chloride 103 mEq/L (98-107); Glucose 229 mg/dL (70-105); Osmolality,Calculated 290 (280-300); Potassium 4.2 mEq/L (3.5-5.1); Sodium 136 mEq/L (136-145); eGFR For African Americans > 60 (> 60); eGFR For Non-African Americans > 60 (> 60)
[2021-12-21] MEDS: Insulin LISPRO 300 UNITS/3 ML VIAL SUBQ SCH ×3 (08:20→16:37)
[2021-12-21 08:24] LABS: Amorphous Sediment,Urine Few per hpf (None-Few); Bacteria,Urine Few per hpf (None-Few); Bilirubin,Urine Negative (Negative); Blood,Urine Negative (Negative); Clarity,Urine Turbid (Clear); Color,Urine Yellow (Yellow); Glucose,Urine (UA) >=1000 mg/dL (Normal); Ketones,Urine 40 mg/dL (Negative); Leukocyte Esterase,Urine Negative (Negative); Mucus,Urine Many per lpf (None-Few); Nitrite,Urine Negative (Negative); PH,Urine 6.5 pH Units (5.0-8.0); Protein,Urine 30 mg/dL (Neg-Trace); RBC,Urine 0-3 per hpf (0-3); Specific Gravity,Urine 1.024 (1.010-1.025); Squamous Epithelial Cell,Urine Moderate per hpf (None-Few)
[2021-12-21] MEDS ORDERED: Ondansetron 4 MG/2 ML VIAL IVP ONE (09:07)
[2021-12-21] MEDS ORDERED: Pantoprazole 40 MG VIAL IVP ONE (09:08)
[2021-12-21] MEDS: Ondansetron 4 MG/2 ML VIAL IVP PRN ×2 (14:27→22:07)
[2021-12-21] MEDS: Ketorolac 30 MG/ML VIAL IVP PRN (14:27)
[2021-12-21] MEDS: *HR* LORazepam 2 MG/ML VIAL IVP PRN (22:39)
[2021-12-22] MEDS: Ketorolac 30 MG/ML VIAL IVP PRN (00:25)
[2021-12-22] MEDS ORDERED: Prochlorperazine 10 MG/2 ML VIAL IVP ONE (01:13)
[2021-12-22] MEDS: Insulin LISPRO 300 UNITS/3 ML VIAL SUBQ SCH ×3 (09:14→17:00)
[2021-12-22] MEDS: Insulin DETEMIR 100 UNIT/ML X5UNITS SUBQ SCH (09:15)
[2021-12-22] MEDS: Ondansetron 4 MG/2 ML VIAL IVP PRN (18:30)
[2021-12-22] MEDS ORDERED: risperiDONE 1 MG TABLET PO SCH (21:00)
[2021-12-23 07:53] VITALS: BP 141/71; PULSE 60; TEMP 98.4; O2SAT 97
[2021-12-23] MEDS: Insulin LISPRO 300 UNITS/3 ML VIAL SUBQ SCH ×2 (08:21→12:18)
[2021-12-23] MEDS: Insulin DETEMIR 100 UNIT/ML X5UNITS SUBQ SCH (08:21)
[2021-12-23] MEDS: *HR* LORazepam 2 MG/ML VIAL IVP PRN (09:26)
[2021-12-23 12:47] LABS: Influenza A PCR Negative (Negative); Influenza B PCR Negative (Negative); Resp. Syncytial Virus PCR Negative (Negative)
[2021-12-23 12:48] LABS: SARS-CoV-2 by PCR (In House) Negative (Negative)
[2021-12-23] MEDS ORDERED: Insulin LISPRO 300 UNITS/3 ML VIAL SUBQ SCH (21:00)
== END 2021-12-23 14:29 | disposition other institution (70) | DRG 773 ==
LOC: EMEROOARM 12:48 → 3BNU 12:48 → SUATTDRO 12-20 10:44 → 3BNU 12-20 11:59
PROVIDERS: ADMIT Internal Medicine; ATTEND Internal Medicine

== ENCOUNTER 2022-03-27 10:11 | Observation (INO) ==
[2022-03-27] MEDS ORDERED: Ziprasidone 20 MG, Closed System Device IM Kit 1 EACH in Water for inj. (sterile) 1 ML IM ONE (10:23)
[2022-03-27] MEDS ORDERED: Water for inj. (sterile) 10 ML ONE (10:28)
[2022-03-27] MEDS ORDERED: Ziprasidone 20 MG/VIAL VIAL IM ONE (10:28)
[2022-03-27 12:32] LABS: Bacteria,Urine Few per hpf (None-Few); Bilirubin,Urine Negative (Negative); Blood,Urine Negative (Negative); Clarity,Urine Clear (Clear); Color,Urine Light-Yellow (Yellow); Glucose,Urine (UA) >=1000 mg/dL (Normal); Ketones,Urine 80 mg/dL (Negative); Leukocyte Esterase,Urine Negative (Negative); Nitrite,Urine Negative (Negative); Protein,Urine Trace mg/dL (Neg-Trace); RBC,Urine 0-3 per hpf (0-3); Specific Gravity,Urine > 1.030 (1.010-1.025); Squamous Epithelial Cell,Urine Few per hpf (None-Few); Urobilinogen,Urine Normal (Normal); WBC,Urine 0-3 per hpf (0-3)
[2022-03-27 13:23] LABS: Phencyclidine Screen,Urine Negative ng/mL (Cutoff=25)
[2022-03-27 13:24] LABS: Amphetamine Screen,Urine Positive ng/mL (Cutoff=1000); Barbiturate Screen,Urine Negative ng/mL (Cutoff=200); Benzodiazepines Screen,Urine Negative ng/mL (Cutoff=200); Cannabinoid Screen,Urine Negative ng/mL (Cutoff = 50); Cocaine Screen,Urine Negative ng/mL (Cutoff= 300); Opiate Screen,Urine Negative ng/mL (Cutoff=300)
[2022-03-27 14:17] LABS: Basophils % 0.3 %; Hematocrit 44.4 % (35.3-44.9); Hemoglobin 14.7 g/dL (11.5-15.4); Immature Granulocytes % 0.3 % (0-4); Lymphocytes # 1.8 K/mcL (0.6-4.6); Lymphocytes % 13.5 %; Mean Corpuscular HGB Conc 33.1 g/dL (31.6-35.5); Mean Corpuscular Hemoglobin 30.3 pg (28.0-33.3); Mean Corpuscular Volume 91.5 fL (83.0-100.0); Mean Platelet Volume 9.3 fL (9.4-12.4); Monocytes # 0.2 K/mcL (0.0-1.3); Monocytes % 1.4 %; Neutrophils # 11.1 K/mcL (1.6-8.9); Platelet Count 298 K/mcL (140-400); Red Blood Count 4.85 M/mcL (3.82-4.97); Red Cell Distribution Width 12.1 % (11.5-14.5); Segmented Neutrophils % 84.5 %; White Blood Count 13.1 K/mcL (4.3-11.1)
[2022-03-27 14:27] LABS: Alanine Aminotransferase 89 Units/L (7-52); Albumin 4.3 g/dL (3.5-5.7); Albumin/Globulin Ratio 1.1 (1.1-2.2); Alkaline Phosphatase 227 Units/L (34-104); Aspartate Amino Transferase 43 Units/L (13-39); BUN/Creatinine Ratio 22 (6-26); Bilirubin,Total 0.7 mg/dL (0.3-1.0); Blood Urea Nitrogen 16 mg/dL (6-20); Calcium 9.7 mg/dL (8.6-10.3); Carbon Dioxide 24 mEq/L (23-29); Chloride 101 mEq/L (98-107); Creatine Kinase 109 Units/L (30-223); Ethanol < 10 mg/dL (Less than 10); Glucose 274 mg/dL (70-105); Lipase 6 Units/L (11-82); Osmolality,Calculated 291 (280-300); Potassium 3.8 mEq/L (3.5-5.1); Sodium 135 mEq/L (136-145); Total Protein 8.3 g/dL (6.4-8.9)
[2022-03-27] MEDS ORDERED: Ondansetron 4 MG/2 ML VIAL IVP PRN (15:44)
[2022-03-27] MEDS ORDERED: Naloxone 0.4 MG/ML INJ IVP PRN (15:44)
[2022-03-27] MEDS ORDERED: Haloperidol Lactate 5 MG/ML VIAL IVP PRN (15:45)
[2022-03-27] MEDS ORDERED: Dextrose Gel 15 GM/37.5 ML TUBE PO PRN ×2 (16:04)
[2022-03-27] MEDS ORDERED: D5% in Water 1,000 ML IVC PRN (16:04)
[2022-03-27] MEDS ORDERED: *HR* Dextrose 50 % in Water (Syg) 50 ML SYRINGE IVP PRN (16:04)
[2022-03-27] MEDS: Insulin LISPRO 300 UNITS/3 ML VIAL SUBQ SCH (19:19)
[2022-03-28] MEDS ORDERED: cloNIDine HCL 0.1 MG TABLET PO PRN (05:51)
[2022-03-28] MEDS ORDERED: Ondansetron 4 MG/2 ML VIAL IVP PRN (05:52)
[2022-03-28] MEDS: Insulin LISPRO 300 UNITS/3 ML VIAL SUBQ SCH ×3 (11:53→18:49)
[2022-03-28 19:50] VITALS: O2SAT 99
[2022-03-29] MEDS: Insulin LISPRO 300 UNITS/3 ML VIAL SUBQ SCH ×3 (08:30→17:37)
[2022-03-29 11:21] VITALS: BP 110/63; PULSE 103; TEMP 100.2
[2022-03-29] MEDS ORDERED: Insulin Human Regular 5 UNIT in 0.9 % Sodium Chloride 10 ML IV ONE (12:09)
[2022-03-29] MEDS: Insulin DETEMIR 100 UNIT/ML X5UNITS SUBQ SCH ×2 (13:28→20:28)
[2022-03-29] MEDS: *HR* LORazepam 2 MG/ML VIAL IVP PRN ×2 (14:49→20:24)
== END 2022-03-29 23:59 | disposition left against medical advice (07) ==
LOC: 3NENU 10:11 → EMEROOARM 10:11 → SUATTDRO 16:38 → 3NENU 18:48
PROVIDERS: ADMIT Internal Medicine; ATTEND Internal Medicine